=== PATIENT | female | born 1985 | race Two or more races ===

== ENCOUNTER 2021-08-30 01:49 | Emergency (ER) | payer MEDICAID, OTHER ==
[~2021-08-30] VITALS: Ht 157.5 cm; Wt 85.3 kg
[2021-08-30 01:49] VITALS: BP 123/88
== END 2021-08-30 06:53 | disposition left against medical advice (07) ==
LOC: ER 02:01
DX: M79.645 Pain in left finger(s) (principal); Z53.21 Procedure and treatment not carried out due to patient leaving prior to being seen by health care provider